=== PATIENT | female | born 1955 | race Caucasian/White ===

== ENCOUNTER 2025-02-27 16:39 | Emergency (ER) | payer OTHER, MEDICAID ==
[~2025-02-27] VITALS: Ht 152.4 cm; Wt 66.0 kg
[~2025-02-27 16:39] MED LIST: AMLO-905 MT; ATOR10TA MT; FENO200C27 MT; HYDR25TA78 MT; INSU100I28 SQ; LIDO700A30 TP; LOSA100T33 MT
[2025-02-27 16:41] VITALS: BP 124/78; PULSE 77; RESP 14; O2SAT 99
[2025-02-27] MEDS ORDERED: ACETAMINOPHEN 500MG TABLET PO ONE (17:00)
[2025-02-27 17:22] LABS: BASOPHILS % 0.5 % (0.0-2.0); EOSINOPHILS % 0.8 % (0.0-5.0); HEMATOCRIT. 36.6 % (36.0-48.0); HEMOGLOBIN. 12.1 g/dL (12.0-16.0); LYMPHOCYTES % 35.0 % (20.0-50.0); MEAN PLATELET VOLUME 8.0 fl (7.4-10.4); MONOCYTES % 5.9 % (2.0-8.0); NEUTROPHILS % 57.8 % (40.0-76.0); PLATELET 304 x1000/uL (130-400); RED BLOOD CELL COUNT 4.13 mill/uL (4.2-5.4); RED CELL DISTRIBUTION WIDTH 13.9 % (11.6-14.6)
[2025-02-27 17:35] LABS: INR 1.0
[2025-02-27 17:36] LABS: CREATININE 0.8 mg/dL (0.6-1.0); UREA NITROGEN BLOOD 14 mg/dL (9-23)
[2025-02-27 17:37] LABS: TROPONIN I HIGH SENSITIVITY 7 ng/L (3.0-34)
[2025-02-27 17:38] LABS: ASPARTATE AMINOTRANSFERASE 49 IU/L (<34); BILIRUBIN DIRECT 0.2 mg/dL (<=3.0); BILIRUBIN TOTAL 0.5 mg/dL (0.1-1.0); PROTEIN TOTAL 7.9 g/dL (6.0-8.3)
[2025-02-27 18:54] VITALS: TEMP 98.2
[2025-02-27] MEDS: ACETAMINOPHEN 500MG TABLET PO NR (18:54)
== END 2025-02-27 19:44 | disposition home or self-care (01) ==
LOC: ER 16:39 → CMPBEDREQ 02-28 08:13
DX: M54.9 Dorsalgia, unspecified (principal); M54.2 Cervicalgia; E11.9 Type 2 diabetes mellitus without complications; I10 Essential (primary) hypertension; R07.89 Other chest pain; Z90.49 Acquired absence of other specified parts of digestive tract; Z79.899 Other long term (current) drug therapy; Z79.4 Long term (current) use of insulin; V89.2XXA Person injured in unspecified motor-vehicle accident, traffic, initial encounter; Y93.89 Activity, other specified; Y92.410 Unspecified street and highway as the place of occurrence of the external cause; Y99.8 Other external cause status
CPT/HCPCS: 36415; 71045; 71250; 72170; 74176; 80048; 80076; 82550; 84484; 85025; 99284